=== PATIENT | male | born 1955 | race Caucasian/White ===

== ENCOUNTER 2017-01-28 11:51 | Outpatient (CLI) | payer OTHER ==
--- NOTE | 2017-01-28 21:06 | Diagnostic Imaging Report ---
~ [facility] [id number] [facility].[address] 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 History:~ RIGHT FOOT AND HEEL PAIN X 2 WEEKS, NO INJURY (Hx) / RIGHT FOOT AND HEEL PAIN (DICOM Hx) / RIGHT FOOT AND HEEL PAIN (Pt comments) Findings: No acute fracture or dislocation is identified. The tibiotalar alignment is maintained. There is slight minimal calcaneal spurring. No acute fracture or osseous abnormality is identified. Impression: Slight minimal calcaneal spurring. No acute osseous abnormality. ~ Electronically signed on Jan 28, 2017 2:57:27 PM CDT by: Sarah MANNING
== END 2017-01-28 12:00 ==
LOC: RAD 11:51
PROVIDERS: ATTEND Nurse Practitioner Family
DX: M79.671 Pain in right foot (principal)
CPT/HCPCS: 73630

== ENCOUNTER 2017-02-28 11:52 | Outpatient (CLI) | payer OTHER | END 2017-02-28 12:00 | LOC: LAB 11:52 | PROVIDERS: ATTEND Nurse Practitioner Family | DX: I82.409 Acute embolism and thrombosis of unspecified deep veins of unspecified lower extremity (principal); I26.99 Other pulmonary embolism without acute cor pulmonale | CPT/HCPCS: 36415; 85610 ==

== ENCOUNTER 2017-05-17 11:55 | Outpatient (CLI) | payer OTHER | END 2017-05-17 11:56 | LOC: LAB 11:55 | PROVIDERS: ATTEND Nurse Practitioner Family | DX: I82.409 Acute embolism and thrombosis of unspecified deep veins of unspecified lower extremity (principal); E72.12 Methylenetetrahydrofolate reductase deficiency | CPT/HCPCS: 36415; 85610 ==

== ENCOUNTER 2018-01-26 12:27 | Outpatient (CLI) | payer OTHER | END 2018-01-26 12:35 | LOC: LAB 12:27 | PROVIDERS: ATTEND Nurse Practitioner Family | DX: Z79.01 Long term (current) use of anticoagulants (principal); I80.10 Phlebitis and thrombophlebitis of unspecified femoral vein | CPT/HCPCS: 36415; 85610 ==

== ENCOUNTER 2018-05-12 13:33 | Outpatient (CLI) | payer OTHER | END 2018-05-12 13:34 | LOC: LAB 13:33 | PROVIDERS: ATTEND Nurse Practitioner Family | DX: Z79.01 Long term (current) use of anticoagulants (principal); I80.10 Phlebitis and thrombophlebitis of unspecified femoral vein | CPT/HCPCS: 36415; 85610 ==